=== PATIENT | female | born 1925 | race Caucasian/White ===

== ENCOUNTER 2016-04-04 18:18 | Emergency (ER) | payer MEDICARE ==
--- NOTE | 2016-04-04 19:07 | DIAGNOSTIC IMAGING REPORT ---
PROCEDURE: CT ABDOMEN/PELVIS W/O CONTRAST INDICATION: RIGHT FLANK PAIN TECHNIQUE: Noncontrast axial images were obtained of the entire abdomen and pelvis with sagittal and coronal reformations. COMPARISON: None. FINDINGS: ABDOMEN: Lung bases are clear. Coronary atherosclerosis. Heart size is normal. Liver, gallbladder, pancreas, spleen and left kidney are normal. Small right renal cortical cyst. Thickening of the adrenal glands. Atherosclerosis with a 3.2 cm infrarenal abdominal aortic aneurysm. Nonspecific bowel gas pattern. PELVIS: Normal appendix. Moderate sigmoid diverticulosis. Calcified uterine fibroid. 3.7 cm left adnexal cyst. Normal bladder. No pelvic mass, inflammatory changes or free fluid. Severe degenerative changes of the spine. IMPRESSION: 1. 3.2 cm infrarenal abdominal aortic aneurysm 2. Moderate sigmoid diverticulosis 3. 3.7 cm left adnexal cyst. Recommend pelvic ultrasound. 4. Results discussed with Dr. Olvera All CT scans at this facility use dose modulation, iterative reconstruction, and/or weight-based dosing when appropriate to reduce radiation dose to as low as reasonably achievable.
--- NOTE | 2016-04-04 19:38 | ED ORDER SUMMARY ---
..... Patient: LIBBY LERNER OrderSheet [facility] VisitID: [id number] [place] [address] 89y, F Registration Date/Time: 04/04/2016 ORDER SHEET Weight: 81.1 kg (stated) Allergies: Belladonna GENERAL ORDERS: CT Abd/Pel wo Cont Urgent (18:32 04/04/2016 Sumi Simmons) (Ack 18:36 NHouse ER Tech1) (19:16 MWinterer R.N.) CBC w Diff Urgent (18:33 04/04/2016 Sumi Simmons) (Ack 18:36 NHouse ER Tech1) (19:10 NHouse ER Tech1) CMP Urgent (18:33 04/04/2016 Sumi Simmons) (Ack 18:36 NHouse ER Tech1) (19:10 NHouse ER Tech1) UA-Culture if indicated Urgent (18:33 04/04/2016 Sumi Simmons) (Ack 18:36 NHouse ER Tech1) (19:10 NHouse ER Tech1) Lipase Urgent (18:33 04/04/2016 Sumi Simmons) (Ack 18:36 NHouse ER Tech1) (19:10 NHouse ER Tech1) Pulse oximeter (18:33 04/04/2016 Sumi Simmons) (Ack 18:45 MWinterer R.N.) (19:16 MWinterer R.N.) MEDICATION ORDERS: Keflex PO 500 mg (NOW) (19:41 04/04/2016 Sumi Simmons) (19:42 [facility] IV FLUIDS: Ceftriaxone IV 1 gm/50mL (NOW) (19:36 04/04/2016 Sumi Simmons) (Cancelled: Duplicate Order19:41 Sumi Simmons) ORDER SHEET NOTES: [Electronically signed by Yisel Rehman (20:01 04/04/2016)] [Electronically signed by Sonu Olvera Dr. (13:03 04/11/2016)] [Electronically locked/signed by Yisel Rehman (20:04/04/2016)]
--- NOTE | 2016-04-04 19:38 | ED NURSING NOTES ---
Clinical Report - Nurses [address] [place] [address] 04/04/2016 18:18 Patient: LIBBY LERNER TRIAGE Acuity: LEVEL 3. Chief Complaint: RIGHT LOWER EXTREMITY PAIN. Location of symptoms- right hip. Alert. No acute distress. TERRELL COMA SCORE: [place] Coma Scale: 15- eyes open spontaneously (4); best verbal response- oriented x 4 (5); best motor response- obeys commands (6). --18:43 Shannan Cavazos R.N. 18:21 04/04/16. BP: 142/66. HR: 82. RR: 20. O2 saturation: 96% on room air. Temp: 98.7 F (oral). --18:43 Shannan Cavazos R.N. Weight: 81.1 kg stated. Height/Length: 66 inches. BMI: 28.9. --18:42 Shannan Cavazos R.N. Medications Aspirin Oral. --18:37 Shannan Cavazos R.N. Digoxin Oral. --18:37 Shannan Cavazos R.N. Atenolol Oral. --18:39 Shannan Cavazos R.N. Levothyroxine Sodium Oral. --18:39 Shannan Cavazos R.N. Furosemide Oral. --18:39 Shannan Cavazos R.N. Atorvastatin Calcium Oral. --18:39 Shannan Cavazos R.N. Vitamin D3 Oral. --18:39 Shannan Cavazos R.N. Multi Vitamin Daily Oral. --18:40 Shannan Cavazos R.N. Medication/allergy information source: the patient. --18:43 Shannan Cavazos R.N. Allergies Belladonna. --18:35 Shannan Cavazos R.N. History Arrived by EMS. Historian: patient. Unaccompanied. This occurred (3 days ago). 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 PAST MEDICAL HX: The patient is post-menopausal. SOCIAL HX: Smoker- current status unknown. Occasional alcohol use; consumes wine by the glass. No drug use. NUTRITIONAL RISK ASSESSMENT: The nutritional risk assessment revealed no deficiencies. LEARNING NEEDS ASSESSMENT: The learning needs assessment revealed no barriers. FALL RISK ASSESSMENT: Fall risk assessment completed. Risk factors identified include patient age greater than 65 years and impairment of mobility. Fall interventions initiated. Patient placed on stretcher. Side rails up x2. Bed in low position. Patient visible from nurses' station. Call light in reach of patient. FUNCTIONAL ASSESSMENT: Functional assessment performed: uses walker- this mobility impairment is an ongoing problem; a hearing aid in both ears- this hearing impairment is an ongoing problem. SKIN INTEGRITY ASSESSMENT: Skin integrity risk assessment completed. No skin integrity risk identified. --18:43 Shannan Cavazos R.N. PROBLEMS: Atrial Fibrillation. Arthritis. --18:27 Shannan Cavazos R.N. Hypercholesterolemia. Hypertension. Thyroid Disease. --18:40 Shannan Cavazos R.N. ADDITIONAL SURGERIES: Ankle surgery. . --18:27 Shannan Cavazos R.N. Assessment GENERAL / NEURO / PSYCH: Alert. Oriented X 4. Appears in no acute distress. Patient appears calm and cooperative. RESPIRATORY: Respirations not labored. CVS: Capillary refill less than 2 seconds. GI / : Abdomen soft and nontender. SKIN: Mucous membranes are pink. Skin is warm and dry. --18:43 Shannan Cavazos R.N. Interventions ID band on patient. To treatment room. --18:43 Shannan Cavazos R.N. PHYSICAL ASSESSMENT 18:44 04/04/16. To room via stretcher. GENERAL / NEURO / PSYCH: Oriented X 4. Alert. Appears in no acute distress. EXTREMITIES: Extremity pulses are within normal limits. Neuro-vascular status intact to the extremity. No lower extremity edema. SKIN: Skin intact. Skin is warm and dry. --18:44 Shannan Cavazos R.N. NURSING PROGRESS NOTES 18:44 04/04/16. Patient gowned. Patient walked to RI with tech. Two patient identifiers checked. Call light placed in reach. Side rails up. Bed placed in lowest position. Brakes of bed on. Patient ready for evaluation- chart flagged. --18:44 Shannan Cavazos RFabricio Patient ID band checked for patient name and birthdate: patient confirmed. Blood samples drawn from the right forearm with 23g butterfly by tech per protocol ; labeled in presence of the patient and sent to lab: rainbow set and red, green, purple and blue top. --19:17 Daniela Flores, ER Tech1 Patient ID band checked for patient name and birthdate: patient confirmed. Instructions provided to collect clean catch urine and patient verbalized understanding. Clean catch urine collected with return of orange-colored urine; sample sent to lab for urinalysis and culture. Specimen labeled in the presence of the patient. --19:18 Daniela Flores, ER Tech1 19:22 04/04/16. Care transferred and report given (MILVIA Morillo). --19:22 Shannan Cavazos R.N. 19:42 04/04/2016 Keflex (Cephalexin) PO 500 mg given. Allergies verified and confirmed 5 rights. --19:42 Yisel Rehman. DISPOSITION / DISCHARGE Departure time: 1952. Condition at departure: unchanged and stable. No learning barriers present. Discharge instructions provided and reviewed with the patient. Reviewed medication(s). Patient verbalized understanding. Written instructions provided in Georgian. The patient was discharged by the physician. She was discharged home and accompanied by family. She left the Emergency Department in a wheelchair and via private vehicle. --20:01 Ysiel Rehman 19:55 04/04/16. BP: 154/60. HR: 93. RR: 18. O2 saturation: 96%. Pain level now 5/10. --20:01 Yisel Rehman. Locked/Released at 04/04/2016 20:01 by Ysiel Rehman,
--- NOTE | 2016-04-04 19:38 | ED CLINICAL REPORT ---
Clinical Report - Physicians/Mid Levels [facility] [address] [place] [address] 04/04/2016 18:18 Patient: LIBBY LERNER Arrived- By ambulance. Historian- patient and EMS personnel. HISTORY OF PRESENT ILLNESS Chief Complaint: FLANK PAIN. At its maximum, severity described as moderate. When seen in the E.D., severity described as moderate. Modifying factors- worsened by movement. Relieved by rest. It is described as located in the right flank and radiating to the right hip. This started 3 days ago and is still present. It was gradual in onset and has been constant but is not gone now. No nausea, loss of appetite, vomiting or diarrhea. No additional abdominal pain. No recent travel. Similar symptoms previously: None. Recent medical care: Not recently seen/assessed. REVIEW OF SYSTEMS No black stools, hematemesis, bloody stools, fever or chest pain. No skin rash. All systems otherwise negative, except as recorded above. PAST HISTORY See nurses notes. Medications: Multi Vitamin Daily Oral. Vitamin D3 Oral. Atorvastatin Calcium Oral. Furosemide Oral. Levothyroxine Sodium Oral. Atenolol Oral. Digoxin Oral. Aspirin Oral. Allergies: Belladonna. SOCIAL HISTORY Never smoker. Occasional alcohol use. No drug use. No recent travel. Is a local resident. ADDITIONAL NOTES The nursing notes have been reviewed. PHYSICAL EXAM Vital Signs: 04/04/2016 19:55 BP: 154/60. HR: 93. RR: 18. O2 saturation: 96%. 04/04/2016 18:21 BP: 142/66. HR: 82. RR: 20. O2 saturation: 96%. Temp: 98.7 F. Blood pressure normal. Oxygen saturation normal. Appearance: Alert. Oriented X3. No acute distress. Eyes: Pupils equal, round and reactive to light. Eyes normal inspection. ENT: Ears normal. Nose normal. Pharynx normal. Neck: Normal inspection. Neck supple. CVS: Normal heart rate and rhythm. Heart sounds normal. Pulses normal. Respiratory: No respiratory distress. Breath sounds normal. Chest nontender. No rales, rhonchi or wheezes. Abdomen: Soft and nontender. Bowel sounds normal. No mass. Back: Normal inspection. Skin: Skin warm and dry. Normal skin color. No rash. Normal skin turgor. Extremities: Extremities exhibit normal ROM. No lower extremity edema. No lower extremity edema. (no tenderness at the hip. no overlying skin changes, crepitus, or dimitris abnormalities. neurovasc intact.). LABS, X-RAYS, AND EKG Abdominal CT: No mass. No free fluid. No bony lesion. no acute process. Study type: abdomen and pelvis. Abdominal CT performed without contrast. The study was independently viewed by me, interpreted by the radiologist and discussed with the radiologist. Laboratory Tests: UA-Culture if indicated: (SHAHAB: 04/04/2016 19:15) ( MsgRcvd 04/04/2016 19:42) Final results Test Result Flag Units (Reference) URINE COLOR YELLOW URINE APPEARANCE CLEAR URINE GLUCOSE NEGATIVE (NEGATIVE) URINE BILIRUBIN NEGATIVE (NEGATIVE) URINE KETONE NEGATIVE (NEGATIVE) URINE SPECIFIC GRAVITY 1.025 (1.010-1.030) URINE PH 6.0 (5.0-8.0) URINE PROTEIN NEGATIVE (NEGATIVE) URINE UROBILINOGEN 0.2 EU/dL (0.2-1.0) URINE NITRITE NEGATIVE (NEGATIVE) URINE BLOOD 1+ (NEGATIVE) URINE LEUK ESTERASE POSITIVE (NEGATIVE) URINE RBC 1-3 rbc/hpf (0-1) URINE WBC 15-25 wbc/hpf (0-1) URINE EPITHELIAL CELLS 1-3 EPI/hpf (0-5) URINE BACTERIA FEW (1+) (NONE SEEN) URINE COMMENT CULTURE INDICATED URINE CULTURES ARE SET-UP BASED ON THE FOLLOWING CRITERIA:POSITIVE NITRITEPOSITIVE LEUKOCYTE ESTERASEGREATER THAN 10 WHITE BLOOD CELLSMODERATE (2+) OR GREATER BACTERIA CBC w Diff: (SHAHAB: 04/04/2016 19:05) ( MsgRcvd 04/04/2016 19:23) Final results Test Result Flag Units (Reference) WHITE BLOOD COUNT 10.8 K/uL (4.5-11.5) RED BLOOD COUNT 4.29 M/uL (4.00-5.20) HEMOGLOBIN 14.1 gm/dL (12.0-16.0) HEMATOCRIT 41.6 % (36.0-46.0) MEAN CELL VOLUME 97 fL (80-100) MEAN CORPUSCULAR HGB 33 pg (26-34) MEAN CORPUSCULAR HGB CONC 34 g/dL (31-37) RED CELL DISTRIBUTION WIDTH 13.0 % (11.6-14.8) PLATELET COUNT 293 K/uL (150-400) LYMPH % 20.5 L % (25-40) MONO % 5.0 % (3-14) GRANULOCYTE % 74.5 (53-90) CMP: (SHAHAB: 04/04/2016 19:05) ( MsgRcvd 04/04/2016 19:30) Final results Test Result Flag Units (Reference) GLUCOSE 117 H mg/dL (70-110) BUN 20 H mg/dL (7-18) CREATININE 1.2 mg/dL (0.6-1.3) Estimated GFR 44.96 mL/min Estimated GFR- 54.49 mL/min Note: Persistent reduction over 3 months in eGFR<60 mL/min/1.73 m2 defines CKD. Patients with eGFR values>=60 mL/min/1.73 m2 may also have CKD if evidence ofpersistent proteinuria. Additional information may be foundat www.kidney.org. SODIUM 136 mmol/L (136-145) POTASSIUM 4.4 mmol/L (3.5-5.1) CHLORIDE 102 mmol/L (98-107) CARBON DIOXIDE 32 mmol/L (21-32) CALCIUM 8.9 mg/dL (8.5-10.1) TOTAL PROTEIN 7.5 g/dL (6.4-8.2) ALBUMIN 3.6 g/dL (3.3-5.0) BILIRUBIN, TOTAL 0.6 mg/dL (0.0-1.0) ALKALINE PHOSPHATASE 61 U/L (46-116) AST (SGOT) 29 U/L (15-37) ALT (SGPT) 37 U/L (12-78) LIPASE 137 U/L (73-393) Culture, Urine: (SHAHAB: 04/04/2016 19:15) ( ArgRcvd 04/07/2016 09:58) Final results Test Result Flag Units (Reference) CULTURE, URINE DATE: 04/07/16 PRELIM REPORT: FINAL REPORT -- PRMI QUANTITATIVE URINE GROWTH: 10,000 TO 50,000 CFU/mL -- MXD QUANTITATIVE URINE GROWTH: 10,000 TO 50,000 CFU/mL AMOXICILLIN/CLAVULANATE AMPICILLIN S AMPICILLIN/SULBACTAM S CEFAZOLIN S CEFTRIAXONE S CEFEPIME S CEFUROXIME CIPROFLOXACIN S ERTAPENEM S GENTAMICIN S IMIPENEM LEVOFLOXACIN S MEROPENEM S NITROFURANTOIN R TETRACYCLINE PIP/TAZO S TRIMETHOPRIM/SULFAMETHOXAZOLE S . PROGRESS AND PROCEDURES Course of Care: The patient is a pleasant 89 yo female with no pertinent past medical history presenting for evaluation of flank pain that radiates to the hip. at this time differential includes appy, diverticulitis, renal colic, or UTI. labs and imaging have been ordered. Ptaient agreeable to the treatment and plan. patietn declined offeres of pain medication. Work up shows aptietn to ahve UTI. given symptoms and negative CT scan, feel this is the most likely diagnosis, no other findings noted. symptoms of pain are in the appropriate anatomic locations. Patient without signs of systemic involvement. No signs of sepsis. First dose of abx given in the ED. Patient tolerated this well. Discussed with patient work up, diagnosis, home care, follow up, and return precautions. All questions answered. The patient expressed understanding of these instructions and was agreeable to them. Do not feel patient needs further emergency department workup or admission to the hospital. Patient non-toxic and in no acute distress. Disposition: Discharged. Condition: good. CLINICAL IMPRESSION 04/04/2016 18:21 BP: 142/66. HR: 82. RR: 20. O2 saturation: 96%. Temp: 98.7 F. Hypertensive. Oxygen saturation normal. Acute urinary tract infection with pyelonephritis and hematuria. Essential hypertension. acute right sided flank pain. INSTRUCTIONS Warnings: GENERAL WARNINGS: Return or contact your physician immediately if your condition worsens or changes unexpectedly, if not improving as expected, or if other problems arise. SPECIFICALLY, return if you develop pain, fever, vomiting, the inability to keep fluids down, blood in vomitus, blood in diarrhea, fainting or lightheadedness. Your Current Medications: CONTINUE TAKING THE FOLLOWING MEDICATIONS: Aspirin Oral. Atenolol Oral. Atorvastatin Calcium Oral. Digoxin Oral. Furosemide Oral. Levothyroxine Sodium Oral. Multi Vitamin Daily Oral. Vitamin D3 Oral. Prescription Medications: Keflex 500 mg: take 1 capsule orally every 8 hours for 10 days. No refill. Substitution is permissible. (disp 30 caps) Tramadol 50 mg: take 1 orally every 8 hours for 5 days, as needed for pain and stiffness. Dispense fifteen (15). No refills. Follow-up: Return to the emergency department as needed. Follow up with your doctor in three days. Reason for referral: recheck today's concerns. Screening today revealed the patient's blood pressure to be in the hypertensive range. Blood pressure screening was not performed during this visit because the patient has an active diagnosis of hypertension. The patient should follow up with a primary care provider for blood pressure management. Understanding of the discharge instructions verbalized by patient. (Electronically signed by Sonu Olvera Dr. 04/11/2016 13:03)
--- NOTE | 2016-04-04 19:38 | ED ORDER SUMMARY ---
..... Patient: LIBBY LERNER OrderSheet [facility] VisitID: [id number] [place] [address] 89y, F Registration Date/Time: 04/04/2016 ORDER SHEET Weight: 81.1 kg (stated) Allergies: Belladonna GENERAL ORDERS: CT Abd/Pel wo Cont Urgent (18:32 04/04/2016 Sumi Simmons) (Ack 18:36 NHouse ER Tech1) (19:16 MWinterer R.N.) CBC w Diff Urgent (18:33 04/04/2016 Sumi Simmons) (Ack 18:36 NHouse ER Tech1) (19:10 NHouse ER Tech1) CMP Urgent (18:33 04/04/2016 Sumi Simmons) (Ack 18:36 NHouse ER Tech1) (19:10 NHouse ER Tech1) UA-Culture if indicated Urgent (18:33 04/04/2016 Sumi Simmons) (Ack 18:36 NHouse ER Tech1) (19:10 NHouse ER Tech1) Lipase Urgent (18:33 04/04/2016 Sumi Simmons) (Ack 18:36 NHouse ER Tech1) (19:10 NHouse ER Tech1) Pulse oximeter (18:33 04/04/2016 Sumi Simmons) (Ack 18:45 MWinterer R.N.) (19:16 MWinterer R.N.) MEDICATION ORDERS: Keflex PO 500 mg (NOW) (19:41 04/04/2016 Sumi Simmons) (19:42 [facility] IV FLUIDS: Ceftriaxone IV 1 gm/50mL (NOW) (19:36 04/04/2016 Sumi Simmons) (Cancelled: Duplicate Order19:41 Sumi Simmons) ORDER SHEET NOTES: [Electronically signed by Yisel Rehman (20:01 04/04/2016)] [Electronically signed by Sonu Olvera Dr. (13:03 04/11/2016)] [Electronically locked/signed by Yisel Rehman (20:04/04/2016)]
--- NOTE | 2016-04-04 19:38 | ED NURSING NOTES ---
Clinical Report - Nurses [address] [place] [address] 04/04/2016 18:18 Patient: LIBBY LERNER TRIAGE Acuity: LEVEL 3. Chief Complaint: RIGHT LOWER EXTREMITY PAIN. Location of symptoms- right hip. Alert. No acute distress. TERRELL COMA SCORE: [place] Coma Scale: 15- eyes open spontaneously (4); best verbal response- oriented x 4 (5); best motor response- obeys commands (6). --18:43 Shannan Cavazos R.N. 18:21 04/04/16. BP: 142/66. HR: 82. RR: 20. O2 saturation: 96% on room air. Temp: 98.7 F (oral). --18:43 Shannan Cavazos R.N. Weight: 81.1 kg stated. Height/Length: 66 inches. BMI: 28.9. --18:42 Shannan Cavazos R.N. Medications Aspirin Oral. --18:37 Shannan Cavazos R.N. Digoxin Oral. --18:37 Shannan Cavazos R.N. Atenolol Oral. --18:39 Shannan Cavazos R.N. Levothyroxine Sodium Oral. --18:39 Shannan Cavazos R.N. Furosemide Oral. --18:39 Shannan Cavazos R.N. Atorvastatin Calcium Oral. --18:39 Shannan Cavazos R.N. Vitamin D3 Oral. --18:39 Shannan Cavazos R.N. Multi Vitamin Daily Oral. --18:40 Shannan Cavazos R.N. Medication/allergy information source: the patient. --18:43 Shannan Cavazos R.N. Allergies Belladonna. --18:35 Shannan Cavazos R.N. History Arrived by EMS. Historian: patient. Unaccompanied. This occurred (3 days ago). 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 PAST MEDICAL HX: The patient is post-menopausal. SOCIAL HX: Smoker- current status unknown. Occasional alcohol use; consumes wine by the glass. No drug use. NUTRITIONAL RISK ASSESSMENT: The nutritional risk assessment revealed no deficiencies. LEARNING NEEDS ASSESSMENT: The learning needs assessment revealed no barriers. FALL RISK ASSESSMENT: Fall risk assessment completed. Risk factors identified include patient age greater than 65 years and impairment of mobility. Fall interventions initiated. Patient placed on stretcher. Side rails up x2. Bed in low position. Patient visible from nurses' station. Call light in reach of patient. FUNCTIONAL ASSESSMENT: Functional assessment performed: uses walker- this mobility impairment is an ongoing problem; a hearing aid in both ears- this hearing impairment is an ongoing problem. SKIN INTEGRITY ASSESSMENT: Skin integrity risk assessment completed. No skin integrity risk identified. --18:43 Shannan Cavazos R.N. PROBLEMS: Atrial Fibrillation. Arthritis. --18:27 Shannan Cavazos R.N. Hypercholesterolemia. Hypertension. Thyroid Disease. --18:40 Shannan Cavazos R.N. ADDITIONAL SURGERIES: Ankle surgery. . --18:27 Shannan Cavazos R.N. Assessment GENERAL / NEURO / PSYCH: Alert. Oriented X 4. Appears in no acute distress. Patient appears calm and cooperative. RESPIRATORY: Respirations not labored. CVS: Capillary refill less than 2 seconds. GI / : Abdomen soft and nontender. SKIN: Mucous membranes are pink. Skin is warm and dry. --18:43 Shannan Cavazos R.N. Interventions ID band on patient. To treatment room. --18:43 Shannan Cavazos R.N. PHYSICAL ASSESSMENT 18:44 04/04/16. To room via stretcher. GENERAL / NEURO / PSYCH: Oriented X 4. Alert. Appears in no acute distress. EXTREMITIES: Extremity pulses are within normal limits. Neuro-vascular status intact to the extremity. No lower extremity edema. SKIN: Skin intact. Skin is warm and dry. --18:44 Shannan Cavazos R.N. NURSING PROGRESS NOTES 18:44 04/04/16. Patient gowned. Patient walked to [place] with tech. Two patient identifiers checked. Call light placed in reach. Side rails up. Bed placed in lowest position. Brakes of bed on. Patient ready for evaluation- chart flagged. --18:44 Shannan Cavazos RFabricio Patient ID band checked for patient name and birthdate: patient confirmed. Blood samples drawn from the right forearm with 23g butterfly by tech per protocol ; labeled in presence of the patient and sent to lab: rainbow set and red, green, purple and blue top. --19:17 Daniela Flores, ER Tech1 Patient ID band checked for patient name and birthdate: patient confirmed. Instructions provided to collect clean catch urine and patient verbalized understanding. Clean catch urine collected with return of orange-colored urine; sample sent to lab for urinalysis and culture. Specimen labeled in the presence of the patient. --19:18 Daniela Flores, ER Tech1 19:22 04/04/16. Care transferred and report given (MILVIA Morillo). --19:22 Shannan Cavazos R.N. 19:42 04/04/2016 Keflex (Cephalexin) PO 500 mg given. Allergies verified and confirmed 5 rights. --19:42 Yisel Rehman. DISPOSITION / DISCHARGE Departure time: 1952. Condition at departure: unchanged and stable. No learning barriers present. Discharge instructions provided and reviewed with the patient. Reviewed medication(s). Patient verbalized understanding. Written instructions provided in Persian. The patient was discharged by the physician. She was discharged home and accompanied by family. She left the Emergency Department in a wheelchair and via private vehicle. --20:01 Yisel Rehman 19:55 04/04/16. BP: 154/60. HR: 93. RR: 18. O2 saturation: 96%. Pain level now 5/10. --20:01 Yisel Rehman. Locked/Released at 04/04/2016 20:01 by Yisel Rehman,
--- NOTE | 2016-04-11 13:03 | ED MED RECONCILIATION SUMMARY ---
Patient: LIBBY LERNER Medication Reconciliation Report [facility] VisitID: [id number] [address] [place] [address] 89y, F Registration Date/Time: 04/04/2016 Weight: 81.1 kg Height/Length: 66 in. BMI: 28.9 ALLERGIES: Belladonna The patient's Home Medications are listed below: CONTINUE TAKING THE FOLLOWING MEDICATIONS: Aspirin Oral Atenolol Oral Atorvastatin Calcium Oral Digoxin Oral Furosemide Oral Levothyroxine Sodium Oral Multi Vitamin Daily Oral Vitamin D3 Oral The source(s) of the original Home Medication information: patient The following Medications were given to the patient in the Emergency Department: Keflex [PO] PO 500 mg, administered: 04/04/2016 7:42:00 PM The following Medications were prescribed to the patient: Keflex 500 mg: take 1 capsule orally every 8 hours for 10 days. No refill. Substitution is permissible.(disp 30 caps) -- Sonu Olvera Dr. Tramadol 50 mg: take 1 orally every 8 hours for 5 days, as needed for pain and stiffness. Dispense fifteen (15). No refills. -- Sonu Olvera Dr.
--- NOTE | 2016-04-11 13:03 | ED MAR SUMMARY ---
..... Medication Administration Record [facility] [address] [place] [address] Patient: LIBBY LERNER Visit ID: [id number] 89y, F Weight: 81.1 kg Height/Length: 66 in BMI: 28.9 ALLERGIES: Belladonna Given 19:42 04/04/2016 Yisel Rehman, Medication Administered: KEFLEX [PO] (CEPHALEXIN), Dose: 500 mg PO. Medication Ordered: Keflex PO 500 mg (NOW).
--- NOTE | 2016-04-11 13:03 | ED MAR SUMMARY ---
..... Medication Administration Record [facility] [address] [place] [address] Patient: LIBBY LERNER Visit ID: [id number] 89y, F Weight: 81.1 kg Height/Length: 66 in BMI: 28.9 ALLERGIES: Belladonna Given 19:42 04/04/2016 Yisel Rehman, Medication Administered: KEFLEX [PO] (CEPHALEXIN), Dose: 500 mg PO. Medication Ordered: Keflex PO 500 mg (NOW).
--- NOTE | 2016-04-11 13:03 | ED DISCHARGE INSTRUCTIONS ---
Patient: LIBBY LERNER General Instructions [facility] VisitID: [id number] [place] [address] 89y, F Registration Date/Time: 04/04/2016 04/04/2016 18:21 BP: 142/66. HR: 82. RR: 20. O2 saturation: 96%. Temp: 98.7 F. Hypertensive. Oxygen saturation normal. Acute urinary tract infection with pyelonephritis and hematuria. Essential hypertension. acute right sided flank pain. INSTRUCTIONS Warnings: GENERAL WARNINGS: Return or contact your physician immediately if your condition worsens or changes unexpectedly, if not improving as expected, or if other problems arise. SPECIFICALLY, return if you develop pain, fever, vomiting, the inability to keep fluids down, blood in vomitus, blood in diarrhea, fainting or lightheadedness. Your Current Medications: CONTINUE TAKING THE FOLLOWING MEDICATIONS: Aspirin Oral. Atenolol Oral. Atorvastatin Calcium Oral. Digoxin Oral. Furosemide Oral. Levothyroxine Sodium Oral. Multi Vitamin Daily Oral. Vitamin D3 Oral. Prescription Medications: Keflex 500 mg: take 1 capsule orally every 8 hours for 10 days. No refill. Substitution is permissible. (disp 30 caps) Tramadol 50 mg: take 1 orally every 8 hours for 5 days, as needed for pain and stiffness. Dispense fifteen (15). No refills. Follow-up: Return to the emergency department as needed. Follow up with your doctor in three days. Reason for referral: recheck today's concerns. Screening today revealed the patient's blood pressure to be in the hypertensive range. Blood pressure screening was not performed during this visit because the patient has an active diagnosis of hypertension. The patient should follow up with a primary care provider for blood pressure management. Understanding of the discharge instructions verbalized by patient. ADDITIONAL INFORMATION Bladder Infection,Female (Adult) A bladder infection ("cystitis" or "UTI") usually causes a constant urge to urinate and a burning when passing urine. Urine may be cloudy, smelly or dark. There may be pain in the lower abdomen. A bladder infection occurs when bacteria from the vaginal area enter the bladder opening (urethra). This can occur from sexual intercourse, wearing tight clothing, dehydration and other factors. Home Care: Drink lots of fluids (at least 6-8 glasses a day, unless you must restrict fluids for other medical reasons). This will force the medicine into your urinary system and flush the bacteria out of your body. Avoid sexual intercourse until your symptoms are gone. Avoid caffeine, alcohol and spicy foods. These can irritate the bladder. A bladder infection is treated with antibiotics. You may also be given Pyridium (generic = phenazopyridine) to reduce the burning sensation. This medicine will cause your urine to become a bright orange color. The orange urine may stain clothing. You may wear a pad or panty-liner to protect clothing. Preventing Future Infections: Always wipe from front to back after a bowel movement. Keep the genital area clean and dry. Drink plenty of fluids each day to avoid dehydration. Both sexual partners should wash before intercourse. Urinate right after intercourse to flush out the bladder. Wear cotton underwear and cotton-lined panty hose; avoid tight-fitting pants. If you are on control pills and are having frequent bladder infections, discuss with your doctor. Follow Up: Return to this facility or see your doctor if ALL symptoms are not gone after three days of treatment. Get Prompt Medical Attention if any of the following occur: Fever of 100.4F (38C) or higher, or as directed by your healthcare provider No improvement by the third day of treatment Increasing back or abdominal pain Repeated vomiting; unable to keep medicine down Weakness, dizziness or fainting Vaginal discharge Pain, redness or swelling in the labia (outer vaginal area) High Blood Pressure --Established High Blood Pressure (Hypertension) is a chronic disease. The cause is unknown in most cases. It can usually be controlled with lifestyle changes and/or medicines. Symptoms of high blood pressure may include headache, dizziness, visual changes, chest pain and shortness of breath. Sometimes it causes no symptoms at all. However, even if there are no symptoms, untreated high blood pressure increases the risk of heart attack, also known as acute myocardial infarction, or AMI, and stroke. It is a serious health risk and should not be ignored. A normal blood pressure is 120/80 or less. The first (top) number is the "systolic" pressure. The second (bottom) number is the "diastolic" pressure. Hypertension exists when either the top number is 140 or higher, OR the bottom number is 90 or higher on repeated measurements. Home Care: All patients with high blood pressure should do the following to lower their pressure. If you are on medicines, then these methods may reduce or eliminate your need for medicines in the future. Begin a weight loss program if you are overweight. Reduce your salt intake. Avoid high salt foods (olives, pickles, smoked meats, salted potato chips, etc.). Do not add salt to your food at the table. Use only small amounts of salt when cooking. Begin an exercise program. Discuss with your doctor what type of exercise program would be best for you. It doesn't have to be difficult. Even brisk walking for 20 minutes three times a week is a good form of exercise. Avoid medicines which contain heart stimulants. This includes many cold and sinus decongestant pills and sprays as well as diet pills. Check the warnings about hypertension on the label. Stimulants such as amphetamine or cocaine could be lethal for someone with hypertension. Never take these. Limit your caffeine intake or switch to caffeine-free products. Stop smoking. If you are a long-time smoker, this can be hard. Enroll in a stop-smoking program to improve your chance of success. Learning how to handle stress better is an important part of any program to lower blood pressure. Learn about relaxation methods such as meditation, yoga or biofeedback. If medicines were prescribed, take them exactly as directed. Missing doses may cause your blood pressure get out of control. Consider buying an automatic blood pressure machine (available at most pharmacies). Use this to monitor your blood pressure at home and report the results to your doctor. Follow Up: Regular visits to your own physician for blood pressure checks and medicine adjustment is an important part of your care. Make a follow-up appointment as directed by our staff. Get Prompt Medical Attention if any of the following occur: Chest pain or shortness of breath Severe headache Throbbing or rushing sound in the ears Nosebleed Sudden severe abdominal pain Extreme drowsiness, confusion or fainting Dizziness or vertigo (dizziness with spinning sensation) Weakness of an arm or leg or one side of the face Difficulty with speech or vision Cephalexin Monohydrate Oral tablet What is this medicine? CEPHALEXIN (sef a EMILIO in) is a cephalosporin antibiotic. It is used to treat certain kinds of bacterial infections It will not work for colds, flu, or other viral infections. How should I use this medicine? Take this medicine by mouth with a full glass of water. Follow the directions on the prescription label. This medicine can be taken with or without food. Take your medicine at regular intervals. Do not take your medicine more often than directed. Take all of your medicine as directed even if you think you are better. Do not skip doses or stop your medicine early. Talk to your occupational therapy aides teacher regarding the use of this medicine in children. While this drug may be prescribed for selected conditions, precautions do apply. What side effects may I notice from receiving this medicine? Side effects that you should report to your doctor or health primary care coordinator as soon as possible: allergic reactions like skin rash, itching or hives, swelling of the face, lips, or tongue breathing problems pain or trouble passing urine redness, blistering, peeling or loosening of the skin, including inside the mouth severe or watery diarrhea unusually weak or tired yellowing of the eyes, skin Side effects that usually do not require medical attention (report to your doctor or health primary care coordinator if they continue or are bothersome): gas or heartburn genital or anal irritation headache joint or muscle pain nausea, vomiting What may interact with this medicine? probenecid some other antibiotics What if I miss a dose? If you miss a dose, take it as soon as you can. If it is almost time for your next dose, take only that dose. Do not take double or extra doses. There should be at least 4 to 6 hours between doses. Where should I keep my medicine? Keep out of the reach of children. Store at room temperature between 59 and 86 degrees F (15 and 30 degrees C). Throw away any unused medicine after the expiration date. What should I tell my health care provider before I take this medicine? They need to know if you have any of these conditions: kidney disease stomach or intestine problems, especially colitis an unusual or allergic reaction to cephalexin, other cephalosporins, penicillins, other antibiotics, medicines, foods, dyes or preservatives or trying to get breast-feeding What should I watch for while using this medicine? Tell your doctor or health primary care coordinator if your symptoms do not begin to improve in a few days. Do not treat diarrhea with over the counter products. Contact your doctor if you have diarrhea that lasts more than 2 days or if it is severe and watery. If you have diabetes, you may get a false-positive result for sugar in your urine. Check with your doctor or health primary care coordinator. Tramadol Hydrochloride Oral tablet What is this medicine? TRAMADOL (TRA ma dole) is a pain reliever. It is used to treat moderate to severe pain in adults. How should I use this medicine? Take this medicine by mouth with a full glass of water. Follow the directions on the prescription label. If the medicine upsets your stomach, take it with food or milk. Do not take more medicine than you are told to take. Talk to your occupational therapy aides teacher regarding the use of this medicine in children. Special care may be needed. What side effects may I notice from receiving this medicine? Side effects that you should report to your doctor or health primary care coordinator as soon as possible: allergic reactions like skin rash, itching or hives, swelling of the face, lips, or tongue breathing difficulties, wheezing confusion itching light headedness or fainting spells redness, blistering, peeling or loosening of the skin, including inside the mouth seizures Side effects that usually do not require medical attention (report to your doctor or health primary care coordinator if they continue or are bothersome): constipation dizziness drowsiness headache nausea, vomiting What may interact with this medicine? Do not take this medicine with any of the following medications: MAOIs like Carbex, Eldepryl, Marplan, Nardil, and Parnate This medicine may also interact with the following medications: alcohol or medicines that contain alcohol antihistamines benzodiazepines bupropion carbamazepine or oxcarbazepine clozapine cyclobenzaprine digoxin furazolidone linezolid medicines for depression, anxiety, or psychotic disturbances medicines for migraine headache like almotriptan, eletriptan, frovatriptan, naratriptan, rizatriptan, sumatriptan, zolmitriptan medicines for pain like pentazocine, buprenorphine, butorphanol, meperidine, nalbuphine, and propoxyphene medicines for sleep muscle relaxants naltrexone phenobarbital phenothiazines like perphenazine, thioridazine, chlorpromazine, mesoridazine, fluphenazine, prochlorperazine, promazine, and trifluoperazine procarbazine warfarin What if I miss a dose? If you miss a dose, take it as soon as you can. If it is almost time for your next dose, take only that dose. Do not take double or extra doses. Where should I keep my medicine? Keep out of the reach of children. Store at room temperature between 15 and 30 degrees C (59 and 86 degrees F). Keep container tightly closed. Throw away any unused medicine after the expiration date. What should I tell my health care provider before I take this medicine? They need to know if you have any of these conditions: brain tumor depression drug abuse or addiction head injury if you frequently drink alcohol containing drinks kidney disease or trouble passing urine liver disease lung disease, asthma, or breathing problems seizures or epilepsy suicidal thoughts, plans, or attempt; a previous suicide attempt by you or a family member an unusual or allergic reaction to tramadol, codeine, other medicines, foods, dyes, or preservatives or trying to get breast-feeding What should I watch for while using this medicine? Tell your doctor or health primary care coordinator if your pain does not go away, if it gets worse, or if you have new or a different type of pain. You may develop tolerance to the medicine. Tolerance means that you will need a higher dose of the medicine for pain relief. Tolerance is normal and is expected if you take this medicine for a long time. Do not suddenly stop taking your medicine because you may develop a severe reaction. Your body becomes used to the medicine. This does NOT mean you are addicted. Addiction is a behavior related to getting and using a drug for a non-medical reason. If you have pain, you have a medical reason to take pain medicine. Your doctor will tell you how much medicine to take. If your doctor wants you to stop the medicine, the dose will be slowly lowered over time to avoid any side effects. You may get drowsy or dizzy. Do not drive, use machinery, or do anything that needs mental alertness until you know how this medicine affects you. Do not stand or sit up quickly, especially if you are an older patient. This reduces the risk of dizzy or fainting spells. Alcohol can increase or decrease the effects of this medicine. Avoid alcoholic drinks. You may have constipation. Try to have a bowel movement at least every 2 to 3 days. If you do not have a bowel movement for 3 days, call your doctor or health primary care coordinator. Your mouth may get dry. Chewing sugarless gum or sucking hard candy, and drinking plenty of water may help. Contact your doctor if the problem does not go away or is severe. You have been given the following additional information: Bladder Infection, Female (Adult) Hypertension, Established Cephalexin Monohydrate Oral tablet Tramadol Hydrochloride Oral tablet (Electronically signed by Sonu Olvera Dr. 04/11/2016 13:03)
--- NOTE | 2016-04-11 13:03 | ED MED RECONCILIATION SUMMARY ---
Patient: LIBBY LERNER Medication Reconciliation Report [facility] VisitID: [id number] [address] [place] [address] 89y, F Registration Date/Time: 04/04/2016 Weight: 81.1 kg Height/Length: 66 in. BMI: 28.9 ALLERGIES: Belladonna The patient's Home Medications are listed below: CONTINUE TAKING THE FOLLOWING MEDICATIONS: Aspirin Oral Atenolol Oral Atorvastatin Calcium Oral Digoxin Oral Furosemide Oral Levothyroxine Sodium Oral Multi Vitamin Daily Oral Vitamin D3 Oral The source(s) of the original Home Medication information: patient The following Medications were given to the patient in the Emergency Department: Keflex [PO] PO 500 mg, administered: 04/04/2016 7:42:00 PM The following Medications were prescribed to the patient: Keflex 500 mg: take 1 capsule orally every 8 hours for 10 days. No refill. Substitution is permissible.(disp 30 caps) -- Sonu Olvera Dr. Tramadol 50 mg: take 1 orally every 8 hours for 5 days, as needed for pain and stiffness. Dispense fifteen (15). No refills. -- Sonu Olvera Dr.
== END 2016-04-04 19:53 | disposition home or self-care (01) ==
LOC: ED SRH 18:18
DX: N10 Acute pyelonephritis (principal); R31.9 Hematuria, unspecified; I10 Essential (primary) hypertension; Z79.82 Long term (current) use of aspirin; Z79.899 Other long term (current) drug therapy; Z88.8 Allergy status to other drugs, medicaments and biological substances
CPT/HCPCS: 90004; 90074; 90100; 90148; 90469; 92235; 95059